=== PATIENT | female | born 1970 | race Caucasian/White ===

== ENCOUNTER 2017-06-11 23:15 | Emergency (ER) | payer SELFPAY ==
[2017-06-12 00:36] VITALS: BP 114/73
[2017-06-12] MEDS ORDERED: IBUPROFEN 600 MG TABLET PO ONE (02:35)
--- NOTE | 2017-06-12 02:38 | ER Document Report ---
ED Extremity Problem, Lower - General Chief Complaint: Fall Injury Stated Complaint: FALL, KNEE PAIN Time Seen by Provider: 06/12/17 02:08 Notes: The patient is a 47-year-old female who presents with bilateral knee pain, worse on the right, after she tripped and landed directly on her knees. She is noticing swelling of her right knee and it is painful when she walks. Denies open wounds, numbness, tingling or any other injuries. TRAVEL OUTSIDE OF THE [place] IN LAST 30 DAYS: No - Related Data Allergies/Adverse Reactions: No Known Allergies Allergy (Unverified 06/12/17 00:33) Past Medical History - General Information source: Patient - Social History Smoking Status: Current Every Day Smoker Family History: Reviewed & Not Pertinent Patient has suicidal ideation: No Patient has homicidal ideation: No Renal/ Medical History: Denies: Hx Peritoneal Dialysis Review of Systems - Review of Systems Notes: REVIEW OF SYSTEMS: CONSTITUTIONAL: -fevers, -chills EENT: -eye pain, -difficulty swallowing, -nasal congestion CARDIOVASCULAR:-chest pain, -syncope. RESPIRATORY: -cough, -SOB GASTROINTESTINAL: -abdominal pain, - nausea, -vomiting, -diarrhea GENITOURINARY: -dysuria, -hematuria MUSCULOSKELETAL: +B/L knee pain, -back pain, -neck pain SKIN: -rash or skin lesions. HEMATOLOGIC: -easy bruising or bleeding. LYMPHATIC: -swollen, enlarged glands. NEUROLOGICAL: -altered mental status or loss of consciousness, -headache, - neurologic symptoms PSYCHIATRIC: -anxiety, -depression. ALL OTHER SYSTEMS REVIEWED AND NEGATIVE. Physical Exam - Vital signs Vitals: Temp Pulse Resp BP Pulse Ox 99.2 F 89 18 114/73 98 06/12/17 00:33 06/12/17 00:33 06/12/17 00:33 06/12/17 00:33 06/12/17 00:33 - Notes Notes: PHYSICAL EXAMINATION: GENERAL: Well-appearing, well-nourished and in no acute distress. HEAD: Atraumatic, normocephalic. EYES: Pupils equal round and reactive to light, extraocular movements intact, sclera anicteric, conjunctiva are normal. ENT: nares patent, oropharynx clear without exudates. Moist mucous membranes. NECK: Normal range of motion, supple without lymphadenopathy LUNGS: Breath sounds clear to auscultation bilaterally and equal. No wheezes rales or rhonchi. HEART: Regular rate and rhythm without murmurs ABDOMEN: Soft, nontender, normoactive bowel sounds. No guarding, no rebound. No masses appreciated. EXTREMITIES: Swelling and tenderness of right anterior knee, no swelling of left knee but anterior tenderness. No open wounds. Able to lift legs off bed. NEUROLOGICAL: Cranial nerves grossly intact. Normal speech. Normal sensory and motor exams. PSYCH: Normal mood, normal affect. SKIN: Warm, Dry, normal turgor, no rashes or lesions noted. Course - Vital Signs Vital signs: Temp Pulse Resp BP Pulse Ox 99.2 F 89 18 114/73 98 06/12/17 00:33 06/12/17 00:33 06/12/17:33 06/12/17 00:33 06/12/17 00:33 Discharge - Discharge Clinical Impression: Contusion of knee Qualifiers: Encounter type: initial encounter Laterality: unspecified laterality Qualified Code(s): S80.00XA - Contusion of unspecified knee, initial encounter Condition: Stable Disposition: HOME, SELF-CARE Additional Instructions: Take Motrin every 6 hours with food to help with your knee contusion and swelling. You may use an Pal wrap and ice to help with the swelling. Follow- up with the orthopedic surgeon in 1 week for a recheck of your symptoms. Contusion Your injury has resulted in a contusion -- a crushing of the deep tissues. No injury to important structures was detected during the physician's exam. Contusions vary in the amount of pain they cause, and in the length of time required for healing. Typically, the area will become bruised, and will remain painful to touch for two or three weeks. However, most patients are back to working and playing within a few days. After the initial period of rest and cold-packs, your symptoms (together with the doctor's recommendations) will determine how rapidly you can get back to full activity. Usually this means "do what feels okay, but don't do things that hurt." If re-examination was recommended, it's important to follow up as instructed. Call the doctor or return any time if pain increases, if swelling becomes severe, if you develop numbness or weakness in an injured extremity, or if any other alarming symptoms occur. Referrals: ZEB DUFFY MD [ACTIVE STAFF] - Follow up as needed
--- NOTE | 2017-06-12 03:36 | RADIOLOGY REPORT (SQ) ---
EXAM DESCRIPTION: KNEE LEFT 4 VIEW CLINICAL HISTORY: 47 years, Female, fall, knee pain COMPARISON: None. NUMBER OF VIEWS: 4 TECHNIQUE: Pain post fall. LIMITATIONS: None. FINDINGS: Mild to moderate lateral and patellofemoral joint compartment osteoarthritis. No fractures, osteochondritis dissecans or calcified loose joint body. Small suprapatellar joint effusion. IMPRESSION: 1. Small joint effusion. No fractures or dislocations. 2. 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 2011 [employer]- All Rights Reserved
--- NOTE | 2017-06-12 04:28 | RADIOLOGY REPORT (SQ) ---
EXAM DESCRIPTION: KNEE RIGHT 4 VIEWS CLINICAL HISTORY: 47 years, Female, fall, knee pain COMPARISON: None. NUMBER OF VIEWS: 4 TECHNIQUE: T11 4 view right knee radiographic technique. LIMITATIONS: None. FINDINGS: Moderate to severe lateral and patellofemoral joint compartment osteoarthritis. Moderate size suprapatellar joint effusion without layering fat. No fractures or osteochondritis dissecans. No lytic or blastic bone lesions. No radiopaque soft tissue foreign bodies or soft tissue gas. IMPRESSION: 1. Moderate to severe bicompartmental osteoarthritis. 2. No fractures or radiopaque foreign bodies. 3. Moderate size suprapatellar joint effusion. 2011 [employer] All Rights Reserved
== END 2017-06-12 03:43 | disposition home or self-care (01) ==
LOC: ER 23:15
DX: S80.00XA Contusion of unspecified knee, initial encounter (principal); M25.461 Effusion, right knee; M25.561 Pain in right knee; M25.562 Pain in left knee; W10.1XXA Fall (on)(from) sidewalk curb, initial encounter; F17.200 Nicotine dependence, unspecified, uncomplicated
CPT/HCPCS: 99283